=== PATIENT | male | born 1970 | race African-American/Black ===

== ENCOUNTER 2018-07-13 09:26 | Inpatient (IN) | payer MEDICAID, OTHER ==
[~2018-07-13] VITALS: Ht 167.6 cm; Wt 86.2 kg
[2018-07-13] MEDS ORDERED: ACETAMINOPHEN 325MG TABLET PO ONE (10:30)
[2018-07-13 11:07] LABS: BASOPHILS % 0.5 % (0.0-2.0); EOSINOPHILS % 0.1 % (0.0-5.0); HEMATOCRIT. 42.1 % (42.0-52.0); HEMOGLOBIN. 14.6 g/dL (14.0-18.0); LYMPHOCYTES % 16.8 % (20.0-50.0); MEAN CORPUSCULAR HEMOGLOBIN 33.1 pg (28.0-32.0); MEAN CORPUSCULAR VOLUME 95.6 fL (80.0-94.0); MEAN PLATELET VOLUME 7.1 fl (7.4-10.4); MONOCYTES % 9.4 % (2.0-8.0); NEUTROPHILS % 73.2 % (40.0-76.0); PLATELET 226 x1000/uL (130-400); RED CELL DISTRIBUTION WIDTH 13.6 % (11.6-14.6)
[2018-07-13 11:11] LABS: CHLORIDE 105 mEq/L (98-107)
[2018-07-13] MEDS ORDERED: ASPIRIN 325MG EC TABLET PO ONE (11:45)
[2018-07-13] MEDS ORDERED: SODIUM CHLORIDE 0.9% 1,000 ML IV ONE (13:49)
[2018-07-13] MEDS ORDERED: CLONIDINE 0.1MG TABLET PO PRN ×2 (17:00→22:15)
[2018-07-13] MEDS ORDERED: ONDANSETRON HCL 4MG/2ML INJ IV PRN ×2 (17:00→22:15)
[2018-07-13] MEDS ORDERED: LORAZEPAM 2MG/ML CPJ IV PRN ×2 (17:00→22:15)
[2018-07-13 20:00] VITALS: BP 97/55
[2018-07-13] MEDS ORDERED: THIAMINE HCL 100MG TABLET PO SCH (20:00)
[2018-07-13] MEDS ORDERED: ZOLPIDEM TARTRATE 5MG TABLET PO PRN (20:15)
[2018-07-13] MEDS ORDERED: MORPHINE SULFATE 4 MG/ML CPJ (NOT FOR IM USE) IV PRN (20:15)
[2018-07-13] MEDS: SODIUM CHLORIDE 0.9% 1,000 ML IV SCH (20:33)
[2018-07-13] MEDS ORDERED: ENOXAPARIN 40MG/0.4ML SYR SUBCUT SCH (22:15)
[2018-07-13] MEDS: ENOXAPARIN 40MG/0.4ML SYR SUBCUT SCH (22:46)
[2018-07-13] MEDS: HYDROCODONE/ACETAMINOPHEN 5/325MG TABLET PO PRN (22:57)
[2018-07-13] MEDS ORDERED: HYDR25TA PO (23:28)
[2018-07-13] MEDS ORDERED: QUET300T2 PO (23:28)
[2018-07-14] VITALS: BP 106/62
[2018-07-14 04:00] VITALS: BP 108/66
[2018-07-14] MEDS: HYDROCODONE/ACETAMINOPHEN 5/325MG TABLET PO PRN ×3 (04:33→19:00)
[2018-07-14 08:00] VITALS: BP 148/82
[2018-07-14] MEDS: FOLIC ACID 1MG TABLET PO SCH (08:48)
[2018-07-14] MEDS: THIAMINE HCL 100MG TABLET PO SCH (08:49)
[2018-07-14 12:00] VITALS: BP 120/71
[2018-07-14] MEDS: SODIUM CHLORIDE 0.9% 1,000 ML IV SCH (12:18)
[2018-07-14 16:00] VITALS: BP 120/73
[2018-07-14 17:11] LABS: BASOPHILS % 0.4 % (0.0-2.0); EOSINOPHILS % 0.9 % (0.0-5.0); HEMATOCRIT. 40.4 % (42.0-52.0); LYMPHOCYTES % 28.7 % (20.0-50.0); MEAN CORPUSCULAR HEMOGLOBIN 33.5 pg (28.0-32.0); MEAN CORPUSCULAR VOLUME 96.3 fL (80.0-94.0); MEAN PLATELET VOLUME 7.4 fl (7.4-10.4); MONOCYTES % 9.8 % (2.0-8.0); NEUTROPHILS % 60.2 % (40.0-76.0); PLATELET 231 x1000/uL (130-400); RED BLOOD CELL COUNT 4.19 mill/uL (4.7-6.1); RED CELL DISTRIBUTION WIDTH 13.2 % (11.6-14.6)
[2018-07-14 17:20] LABS: CHLORIDE 105 mEq/L (98-107)
[2018-07-14 20:00] VITALS: BP 116/74
[2018-07-14] MEDS: ENOXAPARIN 40MG/0.4ML SYR SUBCUT SCH (20:39)
[2018-07-14] MEDS ORDERED: QUETIAPINE FUMARATE 100MG TABLET PO SCH (21:00)
[2018-07-15 04:00] VITALS: BP 124/84
[2018-07-15 08:00] VITALS: BP 134/88
[2018-07-15] MEDS: THIAMINE HCL 100MG TABLET PO SCH (08:43)
[2018-07-15] MEDS: FOLIC ACID 1MG TABLET PO SCH (08:44)
[2018-07-15 12:00] VITALS: BP 132/84
[2018-07-15 15:06] VITALS: BP 128/88
[2018-07-16] MEDS ORDERED: HYDROCHLOROTHIAZIDE 25MG TABLET PO SCH (09:00)
== END 2018-07-15 16:40 | disposition home or self-care (01) | DRG 351 ==
LOC: ER 09:26 → 8WST 12:08 → ENRESERV 15:19
PROVIDERS: ADMIT Internal Medicine Nephrology; ATTEND Internal Medicine Nephrology
DX: M25.571 Pain in right ankle and joints of right foot (principal); N17.0 Acute kidney failure with tubular necrosis; I24.9 Acute ischemic heart disease, unspecified; E66.9 Obesity, unspecified; I10 Essential (primary) hypertension; Z87.891 Personal history of nicotine dependence; Z71.3 Dietary counseling and surveillance; Z68.30 Body mass index [BMI] 30.0-30.9, adult
CPT/HCPCS: 36415; 71045; 73610; 80048; 84484; 93005; 97162; 97535; J1650; J2270; J7030